=== PATIENT | male | born 1975 | race Caucasian/White ===

== ENCOUNTER 2025-01-04 15:52 | Emergency (ER) | payer BC, SELFPAY ==
[2025-01-04 16:04] VITALS: BP 147/95
--- NOTE | 2025-01-04 20:26 | ED.GENMED ---
History of Present Illness
General
Chief Complaint: Male Genito-Urinary Symptoms
Source: patient
Exam Limitations: none
Time Seen by Provider: 01/04/25 19:40
History of Present Illness
History of Present Illness:
Note:
CHIEF COMPLAINT(S)
Alteration in penile appearance with associated groin pain.
HISTORY OF PRESENT ILLNESS
The patient is a 49-year-old male with a history of pars defect and possible sciatica, presenting with concerns about penile asymmetry noticed today. He describes a noticeable bump on the left side of the penis at the base, not previously observed.
This was correlated with recent groin pain noted during the day. He expressed concern that the alteration in appearance might indicate a vascular issue, given a previous experience of decreased blood flow during a sexual encounter with his . The
patient hopes to rule out any serious conditions and seeks reassurance regarding these changes. No interventions alleviated his symptoms and he was advised by his chiropractor, whom he consulted earlier today, to seek further evaluation.
Approximately a year and a half ago, during a urological examination, he mentioned experiencing a clicking sensation when ejaculating. He underwent a cystoscopy for suspected prostatitis; results indicated a tight pelvic floor, and treatment
included pelvic floor therapy. Currently, the patient denies any urination difficulties except for minor dribbling associated with the tight pelvic floor. He reports no recent history of trauma, penile bruising, swelling, or pain suggestive of
fracture, and no evidence of impaired arterial or venous flow was observed during todays examination.
PHYSICAL EXAM
General: Alert, no acute distress.
Skin: Warm, dry.
Head: Normocephalic, atraumatic.
Neck: Supple, trachea midline.
Eye, Ear, Nose, Mouth, and Throat: Oral mucosa moist.
Cardiovascular: Normal peripheral perfusion, no edema.
Respiratory: Respirations are non-labored.
Gastrointestinal: Abdomen nondistended.
Back: Normal range of motion, normal alignment.
Musculoskeletal: Normal range of motion, normal strength.
Neurological: Alert and oriented to person, place, time, and situation. No focal neurological deficit observed.
Psychiatric: Cooperative, appropriate mood & affect.
Genitourinary: Penile exam normal, normal arterial perfusion, normal appearance. No palpable cords, no ecchymosis or cyanosis noted. Scrotum and testicles appear normal.
PLAN
1. Reassure the patient regarding the normal appearance and function noted on examination.
2. Advise monitoring for any changes in penile appearance or function, including any signs of trauma or significant alteration in blood flow.
3. Recommend follow-up with a urologist should any new symptoms or concerns arise.
DIFFERENTIAL DIAGNOSIS
The Differential Diagnosis includes, in no particular order and is not limited to:
1. Penile vein thrombosis
2. Peyronies disease
3. Epididymitis
4. Varicocele
5. Penile fracture
6. Urethral stricture
7. Prostatitis
8. Tight pelvic floor syndrome
9. Sciatica-related referred pain
10. Inguinal hernia
Disposition:
SUMMARY OF ENCOUNTER
The patient, a 49-year-old male, was seen in the emergency department for concerns of penile asymmetry with associated groin pain. Upon presentation, the patient reported a noticeable bump at the base of the penis and was concerned about possible
vascular issues due to previous experiences of decreased blood flow. Ultrasound imaging was conducted, which showed no sonographic evidence of acute arterial occlusion, venous thrombosis, torsion, epididymitis, or acute changes. The ultrasound did
reveal bilateral varicoceles and testicular microlithiasis, which the patient acknowledged was a known condition. The patient appeared well and the physical examination was unremarkable.
DISPOSITION
Discharge.
ASSESSMENT
The assessment focused on evaluating the risk of serious vascular conditions and ensuring no immediate intervention was needed. Current findings do not indicate an acute emergency.
PLAN
1. Reassure the patient regarding the normal findings on the ultrasound.
2. Advise monitoring for any changes in penile appearance or function.
3. Instruct the patient to follow up with a urologist for further evaluation and management.
4. Discharge with advice to return to the emergency department if symptoms worsen.
INDEPENDENT REVIEW OF LABS AND INTERPRETATION OF TESTS
My independent review of the ultrasound reading shows no sonographic evidence of torsion, epididymitis, or significant vascular abnormalities, but it does reveal bilateral varicoceles and testicular microlithiasis.
PATIENT EDUCATION AND COUNSELING
The patient was educated on the normal ultrasound findings and reassured about the lack of evidence for an emergency vascular issue. He was advised to watch for any new symptoms and understand the importance of follow-up with a urologist.
FOLLOW-UP INSTRUCTIONS
The patient was advised to follow up with a urologist for further evaluation and to return to the emergency department if symptoms worsen or new symptoms arise.
DIAGNOSIS
- Bilateral varicoceles (ICD-10: I86.1)
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
-Groin pain
-hypertension, likely pain related
Phy Exam
Physical Exam
Physical Exam:
.
Course
Orders/Labs/Results
Orders:
Orders
01/04/25 16:15
US Scrotum Urgent
Comment:
Reason For Exam: pain at the base of penis and left scrotum pain
Vital Signs
Initial and Last Documented VS:
Initial Vital Signs
Temp Pulse Resp BP Pulse Ox
98.7 F 96 18 147/95 100
01/04/25 16:04 01/04/25 16:04 01/04/25 16:04 01/04/25 16:04 01/04/25 16:04
Last Documented Vital Signs
Temp Pulse Resp BP Pulse Ox
98.7 F 96 18 147/95 100
01/04/25 16:04 01/04/25 16:04 01/04/25 16:04 01/04/25 16:04 01/04/25 16:04
*Pulse Oximetry
SaO2: 100
Oxygen Mode of Delivery: Room air
Patient hypoxic: no
*Critical Care Note
Total Time (30-74mins, 75-104mins- exclusive of procedures): Not Applicable
ED Attending Note
-
Portions of this chart may have been created with voice recognition software.� Occasional wrong word or��sound alike� substitutions may have occurred due to the inherent limitations of voice recognition software.
Discharge Plan
Departure
Patient Disposition: Home (Routine Discharge)
Date of Disposition: 01/04/25
Time of Disposition: 20:26
Patient with high blood pressure during this ER visit?: Yes
Discharge Problem:
Left groin pain
Instructions: BLOOD PRESSURE
Referrals:
Diaz Lambert CRNP [Family Provider, General]
Activity Restrictions/Additional Instructions:
Groin pain
Return immediately for discoloration of the penis or scrotum, worsening pain, anatomic changes, fevers or any other concerns. If any symptoms recur or persist, please see your urologist in the next 1 week for follow-up.
Interventions
Interventions:
*Risk Screen - Suicide Last Done: 01/04/25 16:04
*General Assessment Last Done: 01/04/25 16:04
Discharge Date and Time
Print Language: GERMAN
== END 2025-01-04 20:40 | disposition home or self-care (01) ==
LOC: EMR 15:52
PROVIDERS: EMERGENCY PHYSICIAN Emergency Medicine; FAMILY PHYSICIAN Nurse Practitioner Family
DX: I86.1 Scrotal varices (principal); R10.32 Left lower quadrant pain; N48.89 Other specified disorders of penis
CPT/HCPCS: 99284; 76870; 93976